=== PATIENT | male | born 1980 | race Caucasian/White ===

== ENCOUNTER 2025-06-02 08:50 | Day surgery (SDC) | payer OTHER ==
[~2025-06-02 08:50] MED LIST: Midazolam 1 MG/ML 2 ML SDV ONE; Propofol 200 MG/20 ML SDV ONE; Sodium Chloride 0.9% 10 ML Syringe FLUSH PRN
[2025-06-02] MEDS: Lactated Ringers 1,000 ML IV SCH (09:31)
[2025-06-02] MEDS ORDERED: Ondansetron 4 MG/2 ML SDV IVPUSH ONE (09:36)
[2025-06-02] MEDS ORDERED: Ketorolac 30 MG/ML SDV IVPUSH ONE (09:36)
[2025-06-02] MEDS ORDERED: Ketamine 500 mg/10 ML MDV IVPUSH ONE (09:36)
[2025-06-02] MEDS ORDERED: Ketamine 500 mg/10 ML MDV ONE (09:57)
[2025-06-02] MEDS ORDERED: Propofol 200 MG/20 ML SDV ONE (10:38)
[2025-06-02] MEDS ORDERED: Midazolam 1 MG/ML 2 ML SDV ONE (10:38)
[2025-06-02] MEDS: Lactated Ringers 1,000 ML IV ONE (10:39)
== END 2025-06-02 11:09 | disposition home or self-care (01) ==
LOC: LL.SDS 08:50
PROVIDERS: ATTEND Surgery
DX: D12.2 Benign neoplasm of ascending colon (principal); K63.5 Polyp of colon; E66.01 Morbid (severe) obesity due to excess calories; E11.22 Type 2 diabetes mellitus with diabetic chronic kidney disease; I12.9 Hypertensive chronic kidney disease with stage 1 through stage 4 chronic kidney disease, or unspecified chronic kidney disease; N18.32 Chronic kidney disease, stage 3b; Z79.899 Other long term (current) drug therapy; Z68.43 Body mass index [BMI] 50.0-59.9, adult; Z86.0100 Personal history of colon polyps, unspecified
CPT/HCPCS: 00811; 82947; J1885; J2250; J2405; J2704; J3490; J7120